=== PATIENT | female | born 1945 | race Caucasian/White ===

== ENCOUNTER 2017-10-20 15:18 | Inpatient (IN) | payer MEDICARE, BC ==
[~2017-10-20] VITALS: Ht 160 cm; Wt 73.0 kg
[2017-10-20 15:18] VITALS: BP 126/73
[2017-10-20] MEDS ORDERED: Sodium Chloride 500ML 500 ML IV ONE (15:28)
[2017-10-20] MEDS ORDERED: Ipratropium 0.02% Inh Soln 2.5ml UD HHN ONE (15:30)
[2017-10-20] MEDS ORDERED: Albuterol ud Inhalation HHN ONE (15:30)
[2017-10-20] MEDS ORDERED: Piperacillin/Tazobactam 4.5 GM in NS 110 ML IV SCH (15:30)
[2017-10-20 16:13] LABS: MEAN CORPUSCULAR HEMOGLOBIN 28.8 PG (27.0-31.0); MEAN CORPUSCULAR HGB CONC 33.3 G/DL (32.0-36.0); MEAN CORPUSCULAR VOLUME 86 FL (80-99); MEAN PLATELET VOLUME 7.6 FL (6.5-10.1); PLATELET COUNT 456 K/UL (150-450); RED BLOOD COUNT 4.65 M/UL (4.20-5.40); RED CELL DISTRIBUTION WIDTH 11.8 % (11.6-14.8)
[2017-10-20] MEDS ORDERED: Zosyn 4.5gm inj ONE (16:16)
[2017-10-20 16:25] LABS: ANION GAP 11 mmol/L (5-15); CALCIUM 8.9 MG/DL (8.5-10.1); CARBON DIOXIDE 30 MMOL/L (21-32); CHLORIDE 91 MMOL/L (98-107); CREATININE 1.4 MG/DL (0.55-1.30); GLOMERULAR FILTRATION RATE 37.2 mL/min (>60); INR 1.1 (0.9-1.1); POTASSIUM 3.4 MMOL/L (3.5-5.1); PROTHROMBIN TIME 11.9 SEC (9.30-11.50); SODIUM 132 MMOL/L (136-145)
[2017-10-20] MEDS ORDERED: LORazepam Inj 2mg/ml 1ml IV ONE (16:30)
[2017-10-20 16:39] LABS: ALANINE AMINOTRANSFERASE 13 U/L (12-78); ALBUMIN/GLOBULIN RATIO 0.6 (1.0-2.7); ASPARTATE AMINO TRANSFERASE 12 U/L (15-37); TOTAL PROTEIN 7.4 G/DL (6.4-8.2)
[2017-10-20] MEDS ORDERED: LORazepam 0.5mg tab ORAL ONE (17:00)
--- NOTE | 2017-10-20 17:01 | Diagnostic Imaging Report ---
Indication: SOB Technique: One view of the chest Comparison: none Findings: There is a large left pleural effusion. Underlying parenchymal disease not excludable. Right lung and pleural space are clear. Impression: Large left pleural effusion Findings previously discussed by phone with Dr. Neri in the emergency room
[2017-10-20 17:25] LABS: BAND NEUTROPHILS % (MANUAL) 1 % (0-8); LYMPHOCYTES % (MANUAL) 1 % (20-45); NEUTROPHILS % (MANUAL) 95 % (45-75); TOTAL CELLS COUNTED 100
[2017-10-20 17:26] LABS: BASOPHILS % (MANUAL) 0 % (0-2); EOSINOPHILS % (MANUAL) 0 % (0-3); PLATELET ESTIMATE INCREASED; PLATELET MORPHOLOGY NORMAL
[2017-10-20 17:42] LABS: APPEARANCE,URINE CLEAR; KETONES,URINE 1+ (NEGATIVE); LEUKOCYTE ESTERASE ,URINE NEGATIVE (NEGATIVE); NITRITE,URINE NEGATIVE (NEGATIVE); PH,URINE 5 (4.5-8.0); PROTEIN,URINE 2+ (NEGATIVE); UROBILINOGEN,URINE NORMAL MG/DL (0.0-1.0)
[2017-10-20 17:56] LABS: SQUAMOUS EPITHELIAL CELL,UR FEW /LPF (NONE/OCC)
[2017-10-20 17:57] LABS: BACTERIA,URINE FEW /HPF
[2017-10-20 18:08] LABS: ABG ALLEN TEST POSITIVE; ABG BASE EXCESS 2.9; ABG PCO2 33.8 mmHg (35.0-45.0)
[2017-10-20 18:12] VITALS: BP 117/59
[2017-10-20 18:40] VITALS: BP 124/47
[2017-10-20] MEDS ORDERED: Miralax 17gm pkt ORAL PRN (18:45)
[2017-10-20] MEDS ORDERED: LORazepam Inj 2mg/ml 1ml IV PRN (18:45)
[2017-10-20] MEDS ORDERED: Morphine Sulfate 4mg/ml Inj IVP PRN (18:45)
--- NOTE | 2017-10-20 18:51 | Consultation ---
History of Present Illness General Date patient seen: Oct 20, 2017 Chief Complaint: Dyspnea/Respdistress Referring physician: Dr. Mckeon Reason for Consultation: pleural effusion Present Illness HPI 72-year-old female with PMHx of HTN sent in by primary care physician for increased difficulty breathing. She is coughing yellow phlegm and has inspiratory left sided chest pain. She had recent chest x-ray which showed a left-sided infiltrate versus effusion. She had elevated white blood count. she had a Ct chest in ER showing large loculated Left effusion. She is admitted for further evaluation. Allergies: Coded Allergies: No Known Allergies (Unverified , 10/20/17) Patient History Healthcare decision maker Resuscitation status Advanced Directive on File Past Medical/Surgical History Past Medical/Surgical History: (1) History of hypertension Review of Systems Constitutional: Reports: weakness Eye: Reports: no symptoms Respiratory: Reports: shortness of breath Cardiovascular: Reports: no symptoms Gastrointestinal: Reports: no symptoms Genitourinary: Reports: no symptoms Musculoskeletal: Reports: no symptoms Physical Exam General Appearance: WD/WN Lines, tubes and drains: peripheral HEENT: normocephalic, atraumatic Neck: non-tender, normal alignment, supple Respiratory/Chest: chest wall non-tender, lungs clear Cardiovascular/Chest: normal peripheral pulses, normal rate Abdomen: normal bowel sounds, non tender Genitourinary/Rectal: normal genital exam, normal rectal exam Extremities: normal range of motion, non-tender Skin Exam: normal pigmentation Last 24 Hour Vital Signs Date Time Temp Pulse Resp B/P (MAP) Pulse Ox O2 Delivery O2 Flow Rate FiO2 10/20/17 18:40 97.2 78 124/47 97 Nasal Cannula 3.0 10/20/17 18:12 81 27 117/59 97 Nasal Cannula 3.0 10/20/17 16:10 88 24 99 Nasal Cannula 2.0 28 10/20/17 15:47 79 24 98 Nasal Cannula 2.0 28 10/20/17 15:46 80 23 Nasal Cannula 2.0 28 10/20/17 15:18 98.4 80 30 126/73 97 Nasal Cannula 2.0 10/20/17 15:18 80 33 Nasal Cannula 2.0 10/20/17 15:13 80 20 122/70 96 Nasal Cannula 2.0 Intake and Output 10/20/17 10/21/17 19:00 07:00 Intake Total 110 ml Balance 110 ml Intake IV Total 110 ml # Voids 2 Laboratory Tests Test 10/20/17 15:50 10/20/17 16:50 10/20/17 17:15 White Blood Count 32.0 K/UL (4.8-10.8) *H Red Blood Count 4.65 M/UL (4.20-5.40) Hemoglobin 13.4 G/DL (12.0-16.0) Hematocrit 40.2 % (37.0-47.0) Mean Corpuscular Volume 86 FL (80-99) Mean Corpuscular Hemoglobin 28.8 PG (27.0-31.0) Mean Corpuscular Hemoglobin Concent 33.3 G/DL (32.0-36.0) Red Cell Distribution Width 11.8 % (11.6-14.8) Platelet Count 456 K/UL (150-450) H Mean Platelet Volume 7.6 FL (6.5-10.1) Neutrophils (%) (Auto) % (45.0-75.0) Lymphocytes (%) (Auto) % (20.0-45.0) Monocytes (%) (Auto) % (1.0-10.0) Eosinophils (%) (Auto) % (0.0-3.0) Basophils (%) (Auto) % (0.0-2.0) Differential Total Cells Counted 100 Neutrophils % (Manual) 95 % (45-75) H Lymphocytes % (Manual) 1 % (20-45) L Monocytes % (Manual) 3 % (1-10) Eosinophils % (Manual) 0 % (0-3) Basophils % (Manual) 0 % (0-2) Band Neutrophils 1 % (0-8) Platelet Estimate Increased H Platelet Morphology Normal Red Blood Cell Morphology Normal Prothrombin Time 11.9 SEC (9.30-11.50) H Prothromb Time International Ratio 1.1 (0.9-1.1) Activated Partial Thromboplast Time 37 SEC (23-33) H Sodium Level 132 MMOL/L (136-145) L Potassium Level 3.4 MMOL/L (3.5-5.1) L Chloride Level 91 MMOL/L (98-107) L Carbon Dioxide Level 30 MMOL/L (21-32) Anion Gap 11 mmol/L (5-15) Blood Urea Nitrogen 30 mg/dL (7-18) H Creatinine 1.4 MG/DL (0.55-1.30) H Estimat Glomerular Filtration Rate 37.2 mL/min (>60) Glucose Level 103 MG/DL (74-106) Calcium Level 8.9 MG/DL (8.5-10.1) Total Bilirubin 0.5 MG/DL (0.2-1.0) Aspartate Amino Transf (AST/SGOT) 12 U/L (15-37) L Alanine Aminotransferase (ALT/SGPT) 13 U/L (12-78) Alkaline Phosphatase 93 U/L (46-116) Troponin I 0.000 ng/mL (0.000-0.056) Pro-B-Type Natriuretic Peptide 253 pg/mL (0-125) H Total Protein 7.4 G/DL (6.4-8.2) Albumin 2.8 G/DL (3.4-5.0) L Globulin 4.6 g/dL Albumin/Globulin Ratio 0.6 (1.0-2.7) L Arterial Blood pH 7.498 (7.350-7.450) Arterial Blood Partial Pressure CO2 33.8 mmHg (35.0-45.0) L Arterial Blood Partial Pressure O2 99.1 mmHg (75.0-100.0) Arterial Blood HCO3 25.6 mmol/L (22.0-26.0) Arterial Blood Oxygen Saturation 97.4 % (92.0-98.0) Arterial Blood Base Excess 2.9 Yimi Test Positive Urine Color Yellow Urine Appearance Clear Urine pH 5 (4.5-8.0) Urine Specific [place] 1.015 (1.005-1.035) Urine Protein 2+ (NEGATIVE) H Urine Glucose (UA) Negative (NEGATIVE) Urine Ketones 1+ (NEGATIVE) H Urine Occult Blood 5+ (NEGATIVE) H Urine Nitrite Negative (NEGATIVE) Urine Bilirubin Negative (NEGATIVE) Urine Urobilinogen Normal MG/DL (0.0-1.0) Urine Leukocyte Esterase Negative (NEGATIVE) Urine RBC 5-10 /HPF (0 - 2) H Urine WBC 2-4 /HPF (0 - 2) Urine Squamous Epithelial Cells Few /LPF (NONE/OCC) Urine Bacteria Few /HPF (NONE) Microbiology Date/Time Source Procedure Growth Status 10/20/17 17:15 Nasal Nares Influenza Types A,B Antigen (BRONWYN) - Final Complete Height (Feet): 5 Height (Inches): 3.00 Weight (Pounds): 110 Medications Current Medications Medications (Trade) Dose Ordered Sig/[place] Route PRN Reason Start Time Stop Time Status Last Admin Dose Admin Acetaminophen (Tylenol) 650 mg Q4H PRN ORAL FEVER 10/20/17 18:45 11/19/17 18:44 UNV Albuterol/ Ipratropium (Albuterol/ Ipratropium) 3 ml EVERY 4 HOURS PRN HHN Shortness of Breath 10/20/17 18:45 10/25/17 18:44 UNV Cefepime HCl 2 gm/ Dextrose 110 ml @ 220 mls/hr EVERY 12 HOURS IV 10/20/17 21:00 10/27/17 20:59 UNV Dextrose (Dextrose 50%) STAT PRN IV Hypoglycemia 10/20/17 18:45 11/19/17 18:44 UNV Heparin Sodium (Porcine) (Heparin 5000 units/ml) 5,000 units EVERY 12 HOURS SUBQ 10/20/17 21:00 11/19/17 20:59 UNV Lorazepam (Ativan 2mg/ml 1ml) 2 mg EVERY 2 HOURS PRN IV For Anxiety 10/20/17 18:45 10/27/17 18:44 UNV Morphine Sulfate (Morphine Sulfate) 4 mg EVERY 4 HOURS PRN IVP Severe Pain (Pain Scale 7-10) 10/20/17 18:45 10/27/17 18:44 UNV Ondansetron HCl (Zofran) 4 mg Q6H PRN IVP Nausea & Vomiting 10/20/17 18:45 11/19/17 18:44 UNV Piperacillin Sod/ Tazobactam Sod 4.5 gm/Sodium Chloride 110 ml @ 220 mls/hr Q6H IV 10/20/17 15:30 10/21/17 15:29 10/20/17 16:33 Polyethylene Glycol (Miralax) 17 gm DAILYPRN PRN ORAL Constipation 10/20/17 18:45 11/19/17 18:44 UNV Sodium Chloride 1,000 ml @ 50 mls/hr Q20H IV 10/20/17 18:38 11/19/17 18:37 UNV Vancomycin HCl 1 gm/Dextrose 275 ml @ 183.3 mls/ hr Q24H IV 10/20/17 23:00 10/25/17 22:59 UNV Assessment/Plan Problem List: (1) Sepsis ICD Codes: A41.9 - Sepsis, unspecified organism SNOMED: 32786340 (2) Pleural effusion ICD Codes: J90 - Pleural effusion, not elsewhere classified SNOMED: 56787053 Assessment/Plan iv abx thoracentesis check cultures f/u wbc check sputum SEMAJ WILKINS Oct 20, 2017 18:51
[2017-10-20] MEDS: Albuterol/Ipratropium 3ml neb HHN PRN (19:40)
[2017-10-20 19:45] LABS: URIC ACID 6.6 MG/DL (2.6-7.2)
[2017-10-20 19:47] LABS: INR 1.1 (0.9-1.1)
[2017-10-20 20:00] VITALS: BP 103/65
[2017-10-20] MEDS ORDERED: Cefepime 2gm in D5W 55ml IVPB ONE (20:30)
[2017-10-20] MEDS ORDERED: Cefepime HCl 2 GM in D5W 110 ML IV SCH (21:00)
[2017-10-20] MEDS: Heparin 5000 units/ml inj SUBQ SCH (21:04)
[2017-10-20] MEDS: Vancomycin 750mg/NS 250ml IVPB SCH (21:48)
[2017-10-20] MEDS ORDERED: Vancomycin 1 GM in D5W 275 ML IV SCH (23:00)
--- NOTE | 2017-10-20 23:42 | History & Physical ---
History and Physical History & Physicial H & P Dictated Job # Jesse Mckeon MD Oct 20, 2017 23:42
[2017-10-21] VITALS: BP 110/58
--- NOTE | 2017-10-21 01:16 | Emergency Room Report ---
History of Present Illness General Chief Complaint: Dyspnea/Respdistress Source: Patient Present Illness HPI Patient is a 72-year-old female sent in by primary care physician after increased difficulty breathing. The patient was noted to have prior history of some difficulty breathing which began after a recent GI procedure. She gradual onset of symptoms. This had progressively worsen. She had recent chest x-ray which showed a left-sided infiltrate versus effusion. The patient noted how elevated white blood count was sent to the hospital for further evaluation. She was noted to have difficulty breathing. The patient was not noted to have any leg pain or swelling. She denies having chest pain. Allergies: Coded Allergies: No Known Allergies (Unverified , 10/20/17) Patient History Past Medical History: see triage record Now: No Reviewed Nursing Documentation: PMH: Agreed Nursing Documentation-PMH Past Medical History: No History, Except For Hx Cardiac Problems: Yes Hx Hypertension: Yes Hx Cancer: No Hx Gastrointestinal Problems: No Hx Neurological Problems: No Review of Systems All Other Systems: negative except mentioned in HPI Physical Exam Vital Signs Date Time Temp Pulse Resp B/P (MAP) Pulse Ox O2 Delivery O2 Flow Rate FiO2 10/20/17 15:13 80 20 122/70 96 Nasal Cannula 2.0 10/20/17 15:18 98.4 10/20/17 15:46 28 Sp02 EP Interpretation: reviewed, normal General Appearance: normal inspection, alert, moderate distress Head: atraumatic ENT: normal ENT inspection, hearing grossly normal, normal voice Neck: normal inspection, full range of motion, supple, no bony tend Respiratory: normal inspection, no retraction, decreased breath sounds, wheezing Cardiovascular #1: regular rate, rhythm, no edema Gastrointestinal: normal inspection, normal bowel sounds, non tender, soft, no guarding, no hernia Genitourinary: no CVA tenderness Musculoskeletal: normal inspection, back normal, normal range of motion Neurologic: normal inspection, alert, oriented x3, responsive, chief recordist III-XII nml as tested, speech normal Psychiatric: normal inspection, judgement/insight normal, mood/affect normal Skin: normal inspection, normal color, no rash Medical Decision Making Diagnostic Impression: Primary Impression: Dyspnea Additional Impression: Respiratory distress ER Course This presented for shortness of breath. Differential included but was not limited to anemia, pneumonia, pneumothorax, myocardial infarction, pericardial effusion, congestive heart failure, acidosis. Because of complexity of patient' s case laboratory testing and imaging studies were ordered. X-ray imaging the chest one view interpreted by radiology showed left-sided pleural effusion. patient was given breathing treatments with some improvement in wheezing. The patient was noted to have evidence of sepsis with elevated white blood count. Patient started on IV antibiotics as well as IV fluid. I CT the chest was ordered CT read by radiology showed no evidence of pulmonary embolism. The patient noted have a somewhat loculated pleural effusion. Dr. Jesse Mckeon was contacted for inpatient management due to being panel physician Labs Test 10/20/17 15:50 10/20/17 16:50 10/20/17 17:15 10/20/17 19:08 White Blood Count 32.0 K/UL (4.8-10.8) Red Blood Count 4.65 M/UL (4.20-5.40) Hemoglobin 13.4 G/DL (12.0-16.0) Hematocrit 40.2 % (37.0-47.0) Mean Corpuscular Volume 86 FL (80-99) Mean Corpuscular Hemoglobin 28.8 PG (27.0-31.0) Mean Corpuscular Hemoglobin Concent 33.3 G/DL (32.0-36.0) Red Cell Distribution Width 11.8 % (11.6-14.8) Platelet Count 456 K/UL (150-450) Mean Platelet Volume 7.6 FL (6.5-10.1) Neutrophils (%) (Auto) % (45.0-75.0) Lymphocytes (%) (Auto) % (20.0-45.0) Monocytes (%) (Auto) % (1.0-10.0) Eosinophils (%) (Auto) % (0.0-3.0) Basophils (%) (Auto) % (0.0-2.0) Differential Total Cells Counted 100 Neutrophils % (Manual) 95 % (45-75) Lymphocytes % (Manual) 1 % (20-45) Monocytes % (Manual) 3 % (1-10) Eosinophils % (Manual) 0 % (0-3) Basophils % (Manual) 0 % (0-2) Band Neutrophils 1 % (0-8) Platelet Estimate Increased Platelet Morphology Normal Red Blood Cell Morphology Normal Sodium Level 132 MMOL/L (136-145) Potassium Level 3.4 MMOL/L (3.5-5.1) Chloride Level 91 MMOL/L (98-107) Carbon Dioxide Level 30 MMOL/L (21-32) Anion Gap 11 mmol/L (5-15) Blood Urea Nitrogen 30 mg/dL (7-18) Creatinine 1.4 MG/DL (0.55-1.30) Estimat Glomerular Filtration Rate 37.2 mL/min (>60) Glucose Level 103 MG/DL (74-106) Calcium Level 8.9 MG/DL (8.5-10.1) Total Bilirubin 0.5 MG/DL (0.2-1.0) Aspartate Amino Transf (AST/SGOT) 12 U/L (15-37) Alanine Aminotransferase (ALT/SGPT) 13 U/L (12-78) Alkaline Phosphatase 93 U/L (46-116) Troponin I 0.000 ng/mL (0.000-0.056) Pro-B-Type Natriuretic Peptide 253 pg/mL (0-125) Total Protein 7.4 G/DL (6.4-8.2) Albumin 2.8 G/DL (3.4-5.0) Globulin 4.6 g/dL Albumin/Globulin Ratio 0.6 (1.0-2.7) Arterial Blood pH 7.498 (7.350-7.450) Arterial Blood Partial Pressure CO2 33.8 mmHg (35.0-45.0) Arterial Blood Partial Pressure O2 99.1 mmHg (75.0-100.0) Arterial Blood HCO3 25.6 mmol/L (22.0-26.0) Arterial Blood Oxygen Saturation 97.4 % (92.0-98.0) Arterial Blood Base Excess 2.9 Yimi Test Positive Urine Color Yellow Urine Appearance Clear Urine pH 5 (4.5-8.0) Urine Specific [place] 1.015 (1.005-1.035) Urine Protein 2+ (NEGATIVE) Urine Glucose (UA) Negative (NEGATIVE) Urine Ketones 1+ (NEGATIVE) Urine Occult Blood 5+ (NEGATIVE) Urine Nitrite Negative (NEGATIVE) Urine Bilirubin Negative (NEGATIVE) Urine Urobilinogen Normal MG/DL (0.0-1.0) Urine Leukocyte Esterase Negative (NEGATIVE) Urine RBC 5-10 /HPF (0 - 2) Urine WBC 2-4 /HPF (0 - 2) Urine Squamous Epithelial Cells Few /LPF (NONE/OCC) Urine Bacteria Few /HPF (NONE) Prothrombin Time 12.0 SEC (9.30-11.50) Prothromb Time International Ratio 1.1 (0.9-1.1) Activated Partial Thromboplast Time 38 SEC (23-33) Uric Acid 6.6 MG/DL (2.6-7.2) Total Creatine Kinase 53 U/L (26-308) Test 10/20/17 21:00 Urine Eosinophils None seen Urine Random Sodium 40 MEQ/L (20-110) Urine Potassium Timed 9 mmol/L (12-62) Last Vital Signs Date Time Temp Pulse Resp B/P (MAP) Pulse Ox O2 Delivery O2 Flow Rate FiO2 10/21/17 00:00 84 10/20/17 20:37 18 Nasal Cannula 3.0 32 10/20/17 20:36 96 10/20/17 20:00 97.9 103/65 Status: unchanged Disposition: ADMITTED INPATIENT Condition: Serious Referrals: NON PHYSICIAN (PCP) Adan Neri Oct 21, 2017 01:16
[2017-10-21] MEDS: Albuterol/Ipratropium 3ml neb HHN PRN ×2 (02:35→07:13)
[2017-10-21 04:00] VITALS: BP 124/70
[2017-10-21 05:13] LABS: MEAN CORPUSCULAR HEMOGLOBIN 29.6 PG (27.0-31.0); MEAN CORPUSCULAR HGB CONC 34.4 G/DL (32.0-36.0); MEAN CORPUSCULAR VOLUME 86 FL (80-99); PLATELET COUNT 461 K/UL (150-450)
[2017-10-21 05:40] LABS: ANION GAP 8 mmol/L (5-15); CALCIUM 8.9 MG/DL (8.5-10.1); CARBON DIOXIDE 29 MMOL/L (21-32); CHLORIDE 96 MMOL/L (98-107); CREATININE 1.1 MG/DL (0.55-1.30); GLOMERULAR FILTRATION RATE 49.1 mL/min (>60); PHOSPHORUS 3.6 MG/DL (2.5-4.9); POTASSIUM 3.2 MMOL/L (3.5-5.1); SODIUM 133 MMOL/L (136-145)
[2017-10-21 07:17] LABS: BAND NEUTROPHILS % (MANUAL) 1 % (0-8); BASOPHILS % (MANUAL) 1 % (0-2); EOSINOPHILS % (MANUAL) 0 % (0-3); LYMPHOCYTES % (MANUAL) 3 % (20-45); NEUTROPHILS % (MANUAL) 89 % (45-75); PLATELET ESTIMATE ADEQUATE; PLATELET MORPHOLOGY NORMAL; TOTAL CELLS COUNTED 100
[2017-10-21 08:00] VITALS: BP 115/71
--- NOTE | 2017-10-21 08:15 | Diagnostic Imaging Report ---
Indication: Shortness of breath Technique: CT pulmonary angiogram performed utilizing automated exposure control with intravenous contrast. Axial, sagittal and coronal reconstructions were obtained. 3-D volumetric reconstructions were also performed. CT dose: Total DLP 730 mGycm; CTDI vol 0.2, 12.6, 50.5, 25.9 mGy Comparison: Correlation made to concurrent chest radial. No prior CT of the chest available for comparison. Findings: Motion degraded exam. Adequate opacification of the pulmonary arteries was achieved. There is no central or large segmental pulmonary embolism. Patient motion and left-sided lung consolidation renders the exam nondiagnostic for smaller subsegmental pulmonary emboli. No evidence of thoracic aortic aneurysm or dissection. There is conventional branching anatomy of the great vessels. There is a large partially loculated left pleural effusion with near complete compressive atelectasis of the left lower lobe. The pleural effusion noted to extend along the medial pleura with mass effect and shift of the mediastinal structures to the right. Rounded fluid attenuation structures with somewhat more defined rims are noted in the left lower lung that may represent loculated fluid however mass is not excluded. Short-term interval followup after thoracentesis is recommended. There is dependent atelectasis on the right. No right-sided pleural effusion. No pneumothorax. Heart size is within normal limits. There is no pericardial effusion. Heterogeneous enlarged left lobe of the thyroid with calcified and noncalcified nodules. Images of the upper abdomen demonstrate a small hiatal hernia. No acute osseous abnormality is seen. Impression: No evidence of central or large segmental pulmonary embolus. Patient motion and pleural/parenchymal disease on the left makes the examination nondiagnostic for smaller subsegmental pulmonary emboli. No evidence of thoracic aortic aneurysm or dissection. Large loculated left pleural effusion with near complete compressive atelectasis of the left lower lobe. There is some shift of the mediastinal structures to the right. Some rounded low attenuation areas in the left lung may be related to focal loculations of pleural fluid however mass is not entirely excluded. Short-term followup exam after thoracentesis recommended for better evaluation. Heterogeneous multinodular left thyroid lobe/goiter with calcified and noncalcified nodules. This corresponds with the preliminary report. The CT scanner at [facility] is accredited by the [employer] and the scans are performed using protocols designed to limit radiation exposure to as low as reasonably achievable to attain images of sufficient resolution adequate for diagnostic evaluation.
[2017-10-21] MEDS: Heparin 5000 units/ml inj SUBQ SCH ×2 (09:00→20:58)
--- NOTE | 2017-10-21 11:26 | Cardiology Report ---
APPROVED REPORT EKG Measurement Heart [id number] Normal sinus rhythm Incomplete right bundle branch block Left anterior fascicular block Abnormal ECG
[2017-10-21 12:00] VITALS: BP 121/72
[2017-10-21] MEDS: D5NS w/KCl 40mEq 1000ml 1,000 ML IV SCH ×2 (12:29→23:02)
[2017-10-21] MEDS: guaiFENesin ER 600mg tab ORAL SCH ×2 (12:29→17:58)
--- NOTE | 2017-10-21 12:58 | Consultation ---
History of Present Illness General Date patient seen: Oct 21, 2017 Time patient seen: 14:05 Chief Complaint: Dyspnea/Respdistress Referring physician: Dr. Mckeon Reason for Consultation: pleural effusion Present Illness HPI 72 y/o F with hx of HTN is sent by PCP to ED on 10/20 with 2-3 days of worsening SOB after recent GI procedure (EGD/[place] ~ 1 week ago). +productive cough and left side inspiratory CP and poor appetitie. CXR showed left side infiltrate vs effusion. Found to have leukocytosis and CT chest which showed large loculated L pleural effusion s/p thoracentesis today with 160 cc of thin pleural fluid. The US revealed multiple loculations. Denies f/c, CP, leg swelling afebrile, leukocytosis up to 32, now improving Allergies: Coded Allergies: No Known Allergies (Unverified , 10/20/17) Patient History Healthcare decision maker N/A Resuscitation status Full Code Advanced Directive on File No Patient History Narrative Pmhx: as above Shx reviewed Fhx non contributory Review of Systems All Other Systems: negative except mentioned in HPI Physical Exam Physical Exam Narrative General Appearance: WD/WN Lines, tubes and drains: peripheral HEENT: normocephalic, atraumatic Neck: non-tender, normal alignment, supple Respiratory/Chest: chest wall non-tender, decreased breath sounds L lung Cardiovascular/Chest: normal peripheral pulses, normal rate Abdomen: normal bowel sounds, non tender Genitourinary/Rectal: normal genital exam, normal rectal exam Extremities: normal range of motion, non-tender Skin Exam: normal pigmentation Last 24 Hour Vital Signs Date Time Temp Pulse Resp B/P (MAP) Pulse Ox O2 Delivery O2 Flow Rate FiO2 10/21/17 08:00 94 10/21/17 07:18 89 16 99 Nasal Cannula 3.0 32 10/21/17 07:16 Nasal Cannula 3.0 32 10/21/17 07:16 89 16 99 Nasal Cannula 3.0 32 10/21/17 07:13 99 Nasal Cannula 3.0 32 10/21/17 07:13 88 16 Nasal Cannula 3.0 32 10/21/17 04:00 98.7 87 28 124/70 94 Nasal Cannula 3.0 10/21/17 04:00 86 10/21/17 02:43 92 20 95 Nasal Cannula 3.0 32 10/21/17 02:42 32 10/21/17 02:40 85 20 93 Nasal Cannula 3.0 32 10/21/17 02:39 93 Nasal Cannula 3.0 32 10/21/17 02:36 85 20 Nasal Cannula 3.0 32 10/21/17 00:00 84 10/21/17 00:00 98.0 65 24 110/58 95 Nasal Cannula 3.0 10/21/17 00:00 98.0 65 24 110/58 95 Nasal Cannula 3.0 10/20/17 20:37 83 18 Nasal Cannula 3.0 32 10/20/17 20:36 96 Nasal Cannula 3.0 32 10/20/17 20:35 Nasal Cannula 3.0 32 10/20/17 20:00 81 10/20/17 20:00 97.9 82 24 103/65 97 Nasal Cannula 3.0 10/20/17 19:05 83 18 96 Nasal Cannula 3.0 32 10/20/17 18:55 32 10/20/17 18:53 78 22 96 Nasal Cannula 3.0 32 10/20/17 18:40 97.2 78 31 124/47 97 Nasal Cannula 3.0 10/20/17 18:30 98.4 81 27 117/59 97 Nasal Cannula 3.0 28 10/20/17 18:12 81 27 117/59 97 Nasal Cannula 3.0 10/20/17 16:10 88 24 99 Nasal Cannula 2.0 28 10/20/17 15:47 79 24 98 Nasal Cannula 2.0 28 10/20/17 15:46 80 23 Nasal Cannula 2.0 28 10/20/17 15:18 98.4 80 30 126/73 97 Nasal Cannula 2.0 10/20/17 15:18 80 33 Nasal Cannula 2.0 10/20/17 15:13 80 20 122/70 96 Nasal Cannula 2.0 Laboratory Tests Test 10/20/17 15:50 10/20/17 16:50 10/20/17 17:15 10/20/17 19:08 White Blood Count 32.0 K/UL (4.8-10.8) *H Red Blood Count 4.65 M/UL (4.20-5.40) Hemoglobin 13.4 G/DL (12.0-16.0) Hematocrit 40.2 % (37.0-47.0) Mean Corpuscular Volume 86 FL (80-99) Mean Corpuscular Hemoglobin 28.8 PG (27.0-31.0) Mean Corpuscular Hemoglobin Concent 33.3 G/DL (32.0-36.0) Red Cell Distribution Width 11.8 % (11.6-14.8) Platelet Count 456 K/UL (150-450) H Mean Platelet Volume 7.6 FL (6.5-10.1) Neutrophils (%) (Auto) % (45.0-75.0) Lymphocytes (%) (Auto) % (20.0-45.0) Monocytes (%) (Auto) % (1.0-10.0) Eosinophils (%) (Auto) % (0.0-3.0) Basophils (%) (Auto) % (0.0-2.0) Differential Total Cells Counted 100 Neutrophils % (Manual) 95 % (45-75) H Lymphocytes % (Manual) 1 % (20-45) L Monocytes % (Manual) 3 % (1-10) Eosinophils % (Manual) 0 % (0-3) Basophils % (Manual) 0 % (0-2) Band Neutrophils 1 % (0-8) Platelet Estimate Increased H Platelet Morphology Normal Red Blood Cell Morphology Normal Prothrombin Time 11.9 SEC (9.30-11.50) H 12.0 SEC (9.30-11.50) H Prothromb Time International Ratio 1.1 (0.9-1.1) 1.1 (0.9-1.1) Activated Partial Thromboplast Time 37 SEC (23-33) H 38 SEC (23-33) H Sodium Level 132 MMOL/L (136-145) L Potassium Level 3.4 MMOL/L (3.5-5.1) L Chloride Level 91 MMOL/L (98-107) L Carbon Dioxide Level 30 MMOL/L (21-32) Anion Gap 11 mmol/L (5-15) Blood Urea Nitrogen 30 mg/dL (7-18) H Creatinine 1.4 MG/DL (0.55-1.30) H Estimat Glomerular Filtration Rate 37.2 mL/min (>60) Glucose Level 103 MG/DL (74-106) Calcium Level 8.9 MG/DL (8.5-10.1) Total Bilirubin 0.5 MG/DL (0.2-1.0) Aspartate Amino Transf (AST/SGOT) 12 U/L (15-37) L Alanine Aminotransferase (ALT/SGPT) 13 U/L (12-78) Alkaline Phosphatase 93 U/L (46-116) Troponin I 0.000 ng/mL (0.000-0.056) Pro-B-Type Natriuretic Peptide 253 pg/mL (0-125) H Total Protein 7.4 G/DL (6.4-8.2) Albumin 2.8 G/DL (3.4-5.0) L Globulin 4.6 g/dL Albumin/Globulin Ratio 0.6 (1.0-2.7) L Arterial Blood pH 7.498 (7.350-7.450) Arterial Blood Partial Pressure CO2 33.8 mmHg (35.0-45.0) L Arterial Blood Partial Pressure O2 99.1 mmHg (75.0-100.0) Arterial Blood HCO3 25.6 mmol/L (22.0-26.0) Arterial Blood Oxygen Saturation 97.4 % (92.0-98.0) Arterial Blood Base Excess 2.9 Yimi Test Positive Urine Color Yellow Urine Appearance Clear Urine pH 5 (4.5-8.0) Urine Specific [place] 1.015 (1.005-1.035) Urine Protein 2+ (NEGATIVE) H Urine Glucose (UA) Negative (NEGATIVE) Urine Ketones 1+ (NEGATIVE) H Urine Occult Blood 5+ (NEGATIVE) H Urine Nitrite Negative (NEGATIVE) Urine Bilirubin Negative (NEGATIVE) Urine Urobilinogen Normal MG/DL (0.0-1.0) Urine Leukocyte Esterase Negative (NEGATIVE) Urine RBC 5-10 /HPF (0 - 2) H Urine WBC 2-4 /HPF (0 - 2) Urine Squamous Epithelial Cells Few /LPF (NONE/OCC) Urine Bacteria Few /HPF (NONE) Uric Acid 6.6 MG/DL (2.6-7.2) Total Creatine Kinase 53 U/L (26-308) Test 10/20/17 21:00 10/21/17 03:50 Urine Eosinophils None seen Urine Random Sodium 40 MEQ/L (20-110) Urine Potassium Timed 9 mmol/L (12-62) L White Blood Count 28.0 K/UL (4.8-10.8) *H Red Blood Count 4.30 M/UL (4.20-5.40) Hemoglobin 12.7 G/DL (12.0-16.0) Hematocrit 37.1 % (37.0-47.0) Mean Corpuscular Volume 86 FL (80-99) Mean Corpuscular Hemoglobin 29.6 PG (27.0-31.0) Mean Corpuscular Hemoglobin Concent 34.4 G/DL (32.0-36.0) Red Cell Distribution Width 12.0 % (11.6-14.8) Platelet Count 461 K/UL (150-450) H Mean Platelet Volume 8.0 FL (6.5-10.1) Neutrophils (%) (Auto) % (45.0-75.0) Lymphocytes (%) (Auto) % (20.0-45.0) Monocytes (%) (Auto) % (1.0-10.0) Eosinophils (%) (Auto) % (0.0-3.0) Basophils (%) (Auto) % (0.0-2.0) Differential Total Cells Counted 100 Neutrophils % (Manual) 89 % (45-75) H Lymphocytes % (Manual) 3 % (20-45) L Monocytes % (Manual) 6 % (1-10) Eosinophils % (Manual) 0 % (0-3) Basophils % (Manual) 1 % (0-2) Band Neutrophils 1 % (0-8) Platelet Estimate Adequate Platelet Morphology Normal Red Blood Cell Morphology Normal Sodium Level 133 MMOL/L (136-145) L Potassium Level 3.2 MMOL/L (3.5-5.1) L Chloride Level 96 MMOL/L (98-107) L Carbon Dioxide Level 29 MMOL/L (21-32) Anion Gap 8 mmol/L (5-15) Blood Urea Nitrogen 22 mg/dL (7-18) H Creatinine 1.1 MG/DL (0.55-1.30) Estimat Glomerular Filtration Rate 49.1 mL/min (>60) Glucose Level 95 MG/DL (74-106) Calcium Level 8.9 MG/DL (8.5-10.1) Phosphorus Level 3.6 MG/DL (2.5-4.9) Albumin 2.4 G/DL (3.4-5.0) L Microbiology Date/Time Source Procedure Growth Status 10/20/17 21:00 Sputum Gram Stain - Final Resulted 10/20/17 21:00 Sputum Sputum Culture Pending Resulted 10/20/17 17:15 Nasal Nares Influenza Types A,B Antigen (BRONWYN) - Final Complete Height (Feet): 5 Height (Inches): 3.00 Weight (Pounds): 161 Medications Current Medications Medications (Trade) Dose Ordered Sig/[place] Route PRN Reason Start Time Stop Time Status Last Admin Dose Admin Acetaminophen (Tylenol) 650 mg Q4H PRN ORAL FEVER 10/20/17 18:45 11/19/17 18:44 Albuterol/ Ipratropium (Albuterol/ Ipratropium) 3 ml Q4H PRN HHN Shortness of Breath 10/20/17 18:45 10/25/17 18:44 10/21/17 07:13 Cefepime HCl 1 gm/ Dextrose 55 ml @ 110 mls/hr Q24H IVPB 10/21/17 20:30 10/28/17 20:29 Dextrose (Dextrose 50%) STAT PRN IV Hypoglycemia 10/20/17 18:45 11/19/17 18:44 Dextrose/ Electrolytes 1,000 ml @ 100 mls/hr Q10H IV 10/21/17 12:00 11/20/17 11:59 10/21/17 12:29 Guaifenesin (Mucinex ER) 600 mg TWICE A DAY ORAL 10/21/17 12:00 11/20/17 11:59 10/21/17 12:29 Heparin Sodium (Porcine) (Heparin 5000 units/ml) 5,000 units EVERY 12 HOURS SUBQ 10/20/17 21:00 11/19/17 20:59 10/20/17 21:04 Lorazepam (Ativan 2mg/ml 1ml) 2 mg Q2H PRN IV For Anxiety 10/20/17 18:45 10/27/17 18:44 Morphine Sulfate (Morphine Sulfate) 4 mg Q4H PRN IVP Severe Pain (Pain Scale 7-10) 10/20/17 18:45 10/27/17 18:44 10/20/17 22:51 Ondansetron HCl (Zofran) 4 mg Q6H PRN IVP Nausea & Vomiting 10/20/17 18:45 11/19/17 18:44 Polyethylene Glycol (Miralax) 17 gm DAILYPRN PRN ORAL Constipation 10/20/17 18:45 11/19/17 18:44 Vancomycin HCl (Vanco rx to dose) 1 ea DAILY PRN MISC PRN RX TO DOSE PROTOCOL 10/20/17 19:30 11/19/17 19:29 Vancomycin/Sodium Chloride 250 ml @ 166.667 mls/hr Q24H IVPB 10/20/17 21:00 10/25/17 20:59 10/20/17 21:48 Assessment/Plan Assessment/Plan Abx: -IV Vancomycin 10/20- Cefepime 10/20- IV Zosyn x1 10/20 Assessment: PNA with Left loculated pleural effusion- r/o empyema vs complicated parapneumonic process- ?aspiration given recent EGD -s/p thoracentesis 10/21- removal of 160cc fluid -CXR: Large left pleural effusion -CTA chest: No evidence of central or large segmental pulmonary embolus. Patient motion and pleural/parenchymal disease on the left makes the examination nondiagnostic for smaller subsegmental pulmonary emboli. No evidence of thoracic aortic aneurysm or dissection. Large loculated left pleural effusion with near complete compressive atelectasis of the left lower lobe. There is some shift of the mediastinal structures to the right. Some rounded low attenuation areas in the left lung may be related to focal loculations of pleural fluid however mass is not entirely excluded. Short-term followup exam after thoracentesis recommended for better evaluation. Heterogeneous multinodular left thyroid lobe/goiter with calcified and noncalcified nodules. Leukocytosis, improving- 2ry to above -afebrile -u/a neg SOLITARIO, improving HTN Plan: -Continue IV Vancomycin and Cefepime #2 and add flagyl for anaerobic coverage -will deescalate pending cultures -f/u cx and pleural fluid analysis and cultures -CT surgery evaluation - may need CT vs VATS -f/u CXR post-thoracentesis -Monitor CBC/BMP, temperatures -awaiting transfer to [facility] Thank you for this consultation. Will continue to follow along with you. Discussed with Raysa Segovia M.D. Oct 21, 2017 12:58
--- NOTE | 2017-10-21 13:41 | Pre-Procedure Note/Attestation ---
Pre-Procedure Note/Attestation Complete Prior to Procedure Planned Procedure: left Procedure Narrative: US guided thoracentesis Indications for Procedure Pre-Operative Diagnosis: pleural effusion Attestation I attest that I discussed the nature of the procedure; its benefits; risks and complications; and alternatives (and the risks and benefits of such alternatives ), prior to the procedure, with the patient (or the patient's legal food service representative). I attest that, if there was a reasonable possibility of needing a blood transfusion, the patient (or the patient's legal food service representative) was given the [facility] standardized written summary, pursuant to the Pierre Yonas Blood Safety Act ([place] Health and Safety Code # 1645, as amended). I attest that I re-evaluated the patient just prior to the surgery and that there has been no change in the patient's H&P, except as documented below: Gato Berg M.D. Oct 21, 2017 13:41
--- NOTE | 2017-10-21 13:57 | Operative Note - PDOC ---
Operative Note Operative Note Date of Operation/Procedure: Oct 21, 2017 Pre-op Diagnosis: pleural effusion Procedure: US guided left thoracentesis Post-op Diagnosis: same Post-op Diagnosis: same as pre-op Operative Findings: consistent w/pre-op dx studies Surgeon: Gato Berg Anesthesia: local Specimen: yes Complications: none Condition: stable Fluids: 0 Estimated Blood Loss: none Drains: none Implant(s) used?: No Indications for Procedure symptomatic left pleural effusion Description of Procedure US guided left thoracentesis done. US revealed complicated left pleural effusion, with multiple loculations. Thoracentesis yeilded 160 cc of thin plueral fluid. Fluid will be sent for requested diganostic studies. Post ptocedure chest xray to be obtained. Patient tolerated procedure well Gato Berg M.D. Oct 21, 2017 13:57
--- NOTE | 2017-10-21 14:37 | Diagnostic Imaging Report ---
Indications: Pleural effusion Technique: Ultrasound used to localize optimal puncture site. Sterile prepping and draping left chest. Local anesthesia with 1% lidocaine. Under real-time ultrasound guidance, puncture pleural space using thoracentesis needle. Stylet removed. Catheter placed to vacuum bottle suction. Total 160 milliliters of fluid aspirated. Patient tolerated procedure well, without immediate complication. Findings: Pulmonary ultrasound demonstrated a moderate to large sized loculated left pleural effusion. Needle noted within this effusion on ultrasound. Impression: Multiloculated left pleural effusion. Successful diagnostic and therapeutic ultrasound-guided thoracentesis, yielding 160 milliliters of fluid.
[2017-10-21] MEDS: metroNIDAZOLE 500mg tab ORAL SCH ×2 (15:42→23:02)
[2017-10-21 16:00] VITALS: BP 118/71
[2017-10-21 17:52] LABS: APPEARANCE, BODY FLUID CLOUDY; BD FL SOURCE THORACENTESIS; BD FL VOLUME 24 mL; BODY FLUID NUCLEATED CELLS 3060 /CUMM; BODY FLUID RBC 540 /CUMM; MONONUCLEAR WBC 4 %; POLYMORPHONUCLEAR WBC 96 %
--- NOTE | 2017-10-21 19:02 | Diagnostic Imaging Report ---
Indication: Status post thoracentesis. Technique: XRAY CHEST 1 V Comparison: 10/20/17 Findings: Heart size and mediastinal contours are stable. Right lung is essentially clear. There is persistent opacification of left hemithorax likely related to known large loculated left pleural effusion. There is no pneumothorax status post thoracentesis. No acute abnormality identified. Impression: No pneumothorax status post thoracentesis.
[2017-10-21 20:00] VITALS: BP 122/70
[2017-10-21] MEDS ORDERED: Cefepime 1gm in D5W 55ml IVPB SCH (20:30)
--- NOTE | 2017-10-21 20:30 | History and Physical Report ---
DATE OF ADMISSION: 10/20/2017 CHIEF COMPLAINT: Shortness breath and cough. HISTORY OF PRESENT ILLNESS: This is a 72-year-old female with past medical history significant for hypertension and dyslipidemia, who had a recent colonoscopy about [id number] weeks ago by Dr. John Sánchez at [facility]. Due to the chronic cough, she subsequently was treated for that and she has been having left-sided chest wall pain and flank pain over past several days, got progressively worsening. She lost appetite over the past five days and associated with shortness of breath and productive cough and shortly after initial evaluation in the emergency room the patient was noted to have left-sided infiltrate versus effusion on chest x-ray and subsequently the patient was admitted to the hospital with left-sided pneumonia and possible pleural effusion versus empyema. PAST MEDICAL HISTORY AND PAST SURGICAL HISTORY: As above. History of hypertension, dyslipidemia, history of laminectomy at L4 and L5 about more than 15 years ago, , GERD, and insomnia. ALLERGIES: No known drug allergies. MEDICATIONS: Medications at home significant for Ambien, Dexilant, ranitidine, atenolol, and Lipitor. SOCIAL HISTORY: The patient denies any smoking. 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 She denied any substance abuse. Socially drinks. Lives with her , very supportive at bedside. FAMILY HISTORY: Heart disease runs in the father's side. REVIEW OF SYSTEMS: Mostly as above complained about of productive cough. Denies any hemoptysis or hematochezia. Denies any bright red blood per rectum. Denies any loss of consciousness. Denies any suicidal or homicidal ideation. Complained about flank pain and chest wall pain. Denies any bright red blood per rectum. PHYSICAL EXAMINATION: VITAL SIGNS: On admission, temperature 98.4, pulse of 80, respiratory rate 20, and blood pressure 122/70. GENERAL: The patient is awake and responsive, in no acute distress. HEAD AND NECK: Pupils are reactive to light. Extraocular movements are intact. NECK: Supple. No JVD. LUNGS: Good air entry. No wheezing or rales. Decreased air in the left side. HEART: S1 and S2. Regular rhythm. No murmur or gallop. ABDOMEN: Soft, nontender, and nondistended. Positive bowel sounds. EXTREMITIES: No cyanosis, clubbing, or edema. NEUROLOGIC: Cranial nerves II through XII are grossly intact. Motor is 5/5 in all extremities. LABORATORY DATA: On admission significant for WBC of 32, hemoglobin 13, hematocrit 40, and platelet 456. Sodium 132, potassium 3.4, chloride 91, bicarbonate 30, BUN 30, and creatinine 1.4. GFR is 37.2. Glucose is 103. Uric acid is 6.6. Calcium is 8.9. First troponin is 0.00. ProBNP of 253. Albumin is 2.8. The patient's PT of 12, INR 1.1, and PTT of 38. Urinalysis +2 protein, ketone +1, urine occult blood +5, and leukocytes negative. ABG; pH of 7.48, pCO2 33, pO2 99, saturating at 97.4. Chest x-ray noted that the patient has a large left pleural effusion. CT of the chest and thorax was done and noted that there is no evidence of central or large segment of pulmonary embolism, the patient's motion and parenchymal disease on the left makes the examination nondiagnostic for the small subsegmental pulmonary embolism. No evidence of the thoracic, aortic aneurysm, or dissection, large loculated left pleural effusion with a near complete compressive atelectasis of the left lower lobe, there is some shift of the mediastinum structure to the right, some level attenuation around the left lung may be related to the focal like loculated pleural effusion. However, the mass is not entirely excluded. Heterogeneous multinodular left thyroid lobe with goiter with calcification and noncalcified nodule. ASSESSMENT: 1. Leukocytosis with the large loculated left pleural effusion, possible pneumonia, underlying empyema. 2. Hypertension. 3. Dyslipidemia. 4. Dehydration. 5. Prerenal azotemia. 6. Acute kidney injury most likely secondary to dehydration with acute tubular necrosis. 7. Hyponatremia. 8. Hypokalemia. PLAN: Admit the patient to [facility]. We will follow up with Dr. Patton [facility]. Broad-spectrum antibiotics with cefepime, vancomycin, and continue broad-spectrum antibiotics, and monitor cultures and laboratory. DVT prophylaxis. Heparin subcutaneous. Discussed with extensively as well as the patient at bedside, they would like to be transferred to [facility]. We will discuss with transfer center once the bed is available. We will consider thoracocentesis for further evaluation of pleural effusion. Code status is Full Code. Jesse Mckeon M.D. DR: SHARON JOB#: [id number] CC:
[2017-10-21] MEDS: Vancomycin 750mg/NS 250ml IVPB SCH (21:00)
[2017-10-22] VITALS: BP 119/67
[2017-10-22] MEDS: Albuterol/Ipratropium 3ml neb HHN PRN ×2 (03:51→07:53)
[2017-10-22 04:00] VITALS: BP 128/74
[2017-10-22] MEDS: metroNIDAZOLE 500mg tab ORAL SCH ×2 (05:42→13:09)
[2017-10-22 05:59] LABS: MEAN CORPUSCULAR HEMOGLOBIN 28.7 PG (27.0-31.0); MEAN CORPUSCULAR HGB CONC 32.9 G/DL (32.0-36.0); MEAN CORPUSCULAR VOLUME 87 FL (80-99); MEAN PLATELET VOLUME 7.7 FL (6.5-10.1); PLATELET COUNT 427 K/UL (150-450); RED BLOOD COUNT 4.03 M/UL (4.20-5.40); RED CELL DISTRIBUTION WIDTH 12.6 % (11.6-14.8); WHITE BLOOD COUNT 18.9 K/UL (4.8-10.8)
[2017-10-22 06:34] LABS: ALANINE AMINOTRANSFERASE 12 U/L (12-78); ALBUMIN/GLOBULIN RATIO 0.5 (1.0-2.7); ANION GAP 10 mmol/L (5-15); ASPARTATE AMINO TRANSFERASE 14 U/L (15-37); CALCIUM 8.6 MG/DL (8.5-10.1); CARBON DIOXIDE 26 MMOL/L (21-32); CHLORIDE 102 MMOL/L (98-107); CREATININE 0.7 MG/DL (0.55-1.30); GLOMERULAR FILTRATION RATE > 60 mL/min (>60); MAGNESIUM 2.3 MG/DL (1.8-2.4); PHOSPHORUS 1.8 MG/DL (2.5-4.9); POTASSIUM 3.5 MMOL/L (3.5-5.1); SODIUM 138 MMOL/L (136-145); TOTAL PROTEIN 6.8 G/DL (6.4-8.2)
[2017-10-22 08:00] VITALS: BP 128/74
--- NOTE | 2017-10-22 09:08 | Infectious Diseases Prog Note ---
Assessment/Plan Assessment/Plan Abx: -IV Vancomycin 10/20- Cefepime 10/20-] Flagyl 10/21- IV Zosyn x1 10/20 Assessment: PNA with Left loculated pleural effusion- r/o empyema vs complicated parapneumonic process- ?aspiration given recent EGD -s/p thoracentesis 10/21- removal of 160cc fluid -WBC 3060 (N 96%), pH 7.5; LDH, protein p ; Cx NTD -sp cx NTD -CXR 10/21 (post- thora)- There is persistent opacification of left hemithorax likely related to known large loculated left pleural effusion. There is no pneumothorax status post thoracentesis. -CXR: Large left pleural effusion -CTA chest: No evidence of central or large segmental pulmonary embolus. Patient motion and pleural/parenchymal disease on the left makes the examination nondiagnostic for smaller subsegmental pulmonary emboli. No evidence of thoracic aortic aneurysm or dissection. Large loculated left pleural effusion with near complete compressive atelectasis of the left lower lobe. There is some shift of the mediastinal structures to the right. Some rounded low attenuation areas in the left lung may be related to focal loculations of pleural fluid however mass is not entirely excluded. Short-term followup exam after thoracentesis recommended for better evaluation. Heterogeneous multinodular left thyroid lobe/goiter with calcified and noncalcified nodules. Leukocytosis, improving- 2ry to above -afebrile -u/a neg -BCx NTD SOLITARIO, improving HTN Plan: -Continue IV Vancomycin and Cefepime #3 and flagyl #2 pending cultures -will deescalate pending cultures -f/u cx and pleural fluid analysis and cultures -CT surgery evaluation - may need CT vs VATS given loculated effusion, persistent effusion and only 160mL removed with thoracentesis -Monitor CBC/BMP, temperatures -awaiting transfer to [facility] Thank you for this consultation. Will continue to follow along with you. Discussed with RN. Subjective Allergies: Coded Allergies: No Known Allergies (Unverified , 10/20/17) Subjective afebrile leukocytosis trending down cx NTD awaiting transfer to [facility] Objective Vital Signs Last 24 Hour Vital Signs Date Time Temp Pulse Resp B/P (MAP) Pulse Ox O2 Delivery O2 Flow Rate FiO2 10/22/17 08:04 99 20 98 Nasal Cannula 3.0 32 10/22/17 07:51 100 20 96 Nasal Cannula 3.0 32 10/22/17 06:42 99 18 Nasal Cannula 3.0 32 10/22/17 06:42 93 Nasal Cannula 3.0 32 10/22/17 06:42 Nasal Cannula 3.0 32 10/22/17 04:01 102 20 99 Nasal Cannula 3.0 32 10/22/17 04:00 98.6 94 20 128/74 94 Nasal Cannula 3.0 10/22/17 03:51 101 20 97 Nasal Cannula 3.0 32 10/22/17 03:43 99 10/22/17 00:00 98.9 93 24 119/67 96 Nasal Cannula 3.0 10/21/17 23:37 93 10/21/17 20:18 101 10/21/17 20:00 98.8 98 18 122/70 96 Nasal Cannula 3.0 10/21/17 19:57 Nasal Cannula 3.0 32 10/21/17 19:57 98 20 Nasal Cannula 3.0 32 10/21/17 19:57 94 Nasal Cannula 3.0 32 10/21/17 16:00 93 10/21/17 16:00 98.5 93 23 118/71 99 Nasal Cannula 3.0 10/21/17 12:00 97 10/21/17 12:00 98.4 97 21 121/72 98 Nasal Cannula 3.0 Height (Feet): 5 Height (Inches): 3.00 Weight (Pounds): 161 Objective General Appearance: WD/WN Lines, tubes and drains: peripheral HEENT: normocephalic, atraumatic Neck: non-tender, normal alignment, supple Respiratory/Chest: chest wall non-tender, decreased breath sounds L lung Cardiovascular/Chest: normal peripheral pulses, normal rate Abdomen: normal bowel sounds, non tender Genitourinary/Rectal: normal genital exam, normal rectal exam Extremities: normal range of motion, non-tender Skin Exam: normal pigmentation Microbiology Date/Time Source Procedure Growth Status 10/21/17 13:37 Ascities Fluid Gram Stain Pending Resulted 10/21/17 13:37 Ascities Fluid Body Fluid Culture - Preliminary NO GROWTH Resulted 10/20/17 21:00 Sputum Gram Stain - Final Resulted 10/20/17 21:00 Sputum Sputum Culture - Preliminary NO GROWTH AFTER 24 HOURS Resulted 10/20/17 17:15 Nasal Nares Influenza Types A,B Antigen (BRONWYN) - Final Complete Laboratory Tests Test 10/21/17 13:37 10/22/17 04:30 Body Fluid Source Thoracentesis Body Fluid Volume 24 mL Body Fluid Appearance Cloudy Body Fluid pH 7.5 Body Fluid RBC 540 /CUMM Body Fluid Total Nucleated Cells 3060 /CUMM Body Fluid Polynuclear WBCs (%) 96 % Body Fluid Mononuclear WBCs (%) 4 % Body Fluid Mesothelial Cells (%) 0 % Body Fluid Glucose Pending Body Fluid Total Protein Pending Body Fluid Albumin Pending Body Fluid Lactate Dehydrogenase Pending White Blood Count 18.9 K/UL (4.8-10.8) H Red Blood Count 4.03 M/UL (4.20-5.40) L Hemoglobin 11.6 G/DL (12.0-16.0) L Hematocrit 35.1 % (37.0-47.0) L Mean Corpuscular Volume 87 FL (80-99) Mean Corpuscular Hemoglobin 28.7 PG (27.0-31.0) Mean Corpuscular Hemoglobin Concent 32.9 G/DL (32.0-36.0) Red Cell Distribution Width 12.6 % (11.6-14.8) Platelet Count 427 K/UL (150-450) Mean Platelet Volume 7.7 FL (6.5-10.1) Neutrophils (%) (Auto) % (45.0-75.0) Lymphocytes (%) (Auto) % (20.0-45.0) Monocytes (%) (Auto) % (1.0-10.0) Eosinophils (%) (Auto) % (0.0-3.0) Basophils (%) (Auto) % (0.0-2.0) Neutrophils % (Manual) Pending Lymphocytes % (Manual) Pending Platelet Estimate Pending Platelet Morphology Pending Sodium Level 138 MMOL/L (136-145) Potassium Level 3.5 MMOL/L (3.5-5.1) Chloride Level 102 MMOL/L (98-107) Carbon Dioxide Level 26 MMOL/L (21-32) Anion Gap 10 mmol/L (5-15) Blood Urea Nitrogen 12 mg/dL (7-18) Creatinine 0.7 MG/DL (0.55-1.30) Estimat Glomerular Filtration Rate > 60 mL/min (>60) Glucose Level 146 MG/DL (74-106) H Calcium Level 8.6 MG/DL (8.5-10.1) Phosphorus Level 1.8 MG/DL (2.5-4.9) L Magnesium Level 2.3 MG/DL (1.8-2.4) Total Bilirubin 0.4 MG/DL (0.2-1.0) Aspartate Amino Transf (AST/SGOT) 14 U/L (15-37) L Alanine Aminotransferase (ALT/SGPT) 12 U/L (12-78) Alkaline Phosphatase 91 U/L (46-116) Lactate Dehydrogenase 156 U/L (81-234) Total Protein 6.8 G/DL (6.4-8.2) Albumin 2.2 G/DL (3.4-5.0) L Globulin 4.6 g/dL Albumin/Globulin Ratio 0.5 (1.0-2.7) L Current Medications Medications (Trade) Dose Ordered Sig/Valencia Route PRN Reason Start Time Stop Time Status Last Admin Dose Admin Acetaminophen (Tylenol) 650 mg Q4H PRN ORAL FEVER 10/20/17 18:45 11/19/17 18:44 Albuterol/ Ipratropium (Albuterol/ Ipratropium) 3 ml Q4H PRN HHN Shortness of Breath 10/20/17 18:45 10/25/17 18:44 10/22/17 07:53 Cefepime HCl 1 gm/ Dextrose 55 ml @ 110 mls/hr Q24H IVPB 10/21/17 20:30 10/28/17 20:29 10/21/17 20:15 Dextrose (Dextrose 50%) STAT PRN IV Hypoglycemia 10/20/17 18:45 11/19/17 18:44 Dextrose/ Electrolytes 1,000 ml @ 100 mls/hr Q10H IV 10/21/17 12:00 11/20/17 11:59 10/21/17 23:02 Guaifenesin (Mucinex ER) 600 mg TWICE A DAY ORAL 10/21/17 12:00 11/20/17 11:59 10/21/17 17:58 Heparin Sodium (Porcine) (Heparin 5000 units/ml) 5,000 units EVERY 12 HOURS SUBQ 10/20/17 21:00 11/19/17 20:59 10/21/17 20:58 Lorazepam (Ativan 2mg/ml 1ml) 2 mg Q2H PRN IV For Anxiety 10/20/17 18:45 10/27/17 18:44 Metronidazole (Flagyl) 500 mg Q8HR ORAL 10/21/17 15:33 10/28/17 15:32 10/22/17 05:42 Morphine Sulfate (Morphine Sulfate) 4 mg Q4H PRN IVP Severe Pain (Pain Scale 7-10) 10/20/17 18:45 10/27/17 18:44 10/20/17 22:51 Ondansetron HCl (Zofran) 4 mg Q6H PRN IVP Nausea & Vomiting 10/20/17 18:45 11/19/17 18:44 Polyethylene Glycol (Miralax) 17 gm DAILYPRN PRN ORAL Constipation 10/20/17 18:45 11/19/17 18:44 Vancomycin HCl (Vanco rx to dose) 1 ea DAILY PRN MISC PRN RX TO DOSE PROTOCOL 10/20/17 19:30 11/19/17 19:29 Vancomycin/Sodium Chloride 250 ml @ 166.667 mls/hr Q24H IVPB 10/20/17 21:00 10/25/17 20:59 10/21/17 21:00 Raysa Hills M.D. Oct 22, 2017 09:08
[2017-10-22 09:13] LABS: ANISOCYTOSIS 1+; BAND NEUTROPHILS % (MANUAL) 0 % (0-8); BASOPHILS % (MANUAL) 0 % (0-2); EOSINOPHILS % (MANUAL) 0 % (0-3); HYPOCHROMASIA 1+; LYMPHOCYTES % (MANUAL) 5 % (20-45); NEUTROPHILS % (MANUAL) 88 % (45-75); PLATELET ESTIMATE ADEQUATE; PLATELET MORPHOLOGY NORMAL; TOTAL CELLS COUNTED 100
[2017-10-22] MEDS: guaiFENesin ER 600mg tab ORAL SCH (10:16)
[2017-10-22] MEDS: D5NS w/KCl 40mEq 1000ml 1,000 ML IV SCH (10:17)
[2017-10-22] MEDS: Heparin 5000 units/ml inj SUBQ SCH (10:29)
--- NOTE | 2017-10-22 10:59 | Diagnostic Imaging Report ---
Indication: Abnormal renal function test Technique: Renal ultrasound Comparison: None Findings: Right kidney measures 10.6 cm. Left kidney measures 9.9 cm. There is no hydronephrosis. No sonographically evident renal calculi are seen. Visualized bladder is grossly unremarkable. Visualized IVC is unremarkable. Incidental note is made of an apparent uterine or periuterine mass measuring 5.2 cm. Impression: No hydronephrosis. Incidental note of an apparent uterine or periuterine mass possibly a fibroid incompletely evaluated on the current exam. Dedicated pelvic ultrasound recommended for further evaluation.
--- NOTE | 2017-10-22 11:50 | Pulmonology Progress Note ---
Assessment/Plan Problems: (1) Sepsis (2) Pleural effusion Assessment/Plan thoracentesis planned, continue abx check cultures Id consult reviewed. Subjective ROS Limited/Unobtainable: No Interval Events: late note for Constitutional: Reports: fatigue Respiratory: Reports: productive cough, shortness of breath Allergies: Coded Allergies: No Known Allergies (Unverified , 10/20/17) Objective Last 24 Hour Vital Signs Date Time Temp Pulse Resp B/P (MAP) Pulse Ox O2 Delivery O2 Flow Rate FiO2 10/22/17 08:04 99 20 98 Nasal Cannula 3.0 32 10/22/17 07:51 100 20 96 Nasal Cannula 3.0 32 10/22/17 06:42 99 18 Nasal Cannula 3.0 32 10/22/17 06:42 93 Nasal Cannula 3.0 32 10/22/17 06:42 Nasal Cannula 3.0 32 10/22/17 04:01 102 20 99 Nasal Cannula 3.0 32 10/22/17 04:00 98.6 94 20 128/74 94 Nasal Cannula 3.0 10/22/17 03:51 101 20 97 Nasal Cannula 3.0 32 10/22/17 03:43 99 10/22/17 00:00 98.9 93 24 119/67 96 Nasal Cannula 3.0 10/21/17 23:37 93 10/21/17 20:18 101 10/21/17 20:00 98.8 98 18 122/70 96 Nasal Cannula 3.0 10/21/17 19:57 Nasal Cannula 3.0 32 10/21/17 19:57 98 20 Nasal Cannula 3.0 32 10/21/17 19:57 94 Nasal Cannula 3.0 10/21/17 16:00 93 10/21/17 16:00 98.5 93 23 118/71 99 Nasal Cannula 3.0 10/21/17 12:00 97 10/21/17 12:00 98.4 97 21 121/72 98 Nasal Cannula 3.0 General Appearance: WD/WN HEENT: normocephalic, atraumatic Respiratory/Chest: chest wall non-tender, lungs clear Breasts: no masses Cardiovascular: normal peripheral pulses Abdomen: normal bowel sounds, soft, non tender Genitourinary: normal external genitalia Extremities: no clubbing Skin: no lesions, no ulcers Microbiology Date/Time Source Procedure Growth Status 10/21/17 13:37 Ascities Fluid Gram Stain - Final Resulted 10/21/17 13:37 Ascities Fluid Body Fluid Culture - Preliminary NO GROWTH Resulted 10/20/17 21:00 Sputum Gram Stain - Final Resulted 10/20/17 21:00 Sputum Sputum Culture - Preliminary NO GROWTH AFTER 24 HOURS Resulted 10/20/17 17:15 Nasal Nares Influenza Types A,B Antigen (BRONWYN) - Final Complete Laboratory Tests 10/21/17 13:37: Body Fluid Source Thoracentesis, Body Fluid Volume 24, Body Fluid Appearance Cloudy, Body Fluid pH 7.5, Body Fluid RBC 540, Body Fluid Total Nucleated Cells 3060, Body Fluid Polynuclear WBCs (%) 96, Body Fluid Mononuclear WBCs (%) 4, Body Fluid Mesothelial Cells (%) 0, Body Fluid Glucose [Pending], Body Fluid Total Protein [Pending], Body Fluid Albumin [Pending], Body Fluid Lactate Dehydrogenase [Pending] 10/22/17 04:30: White Blood Count 18.9H, Red Blood Count 4.03L, Hemoglobin 11.6L, Hematocrit 35.1L, Mean Corpuscular Volume 87, Mean Corpuscular Hemoglobin 28.7, Mean Corpuscular Hemoglobin Concent 32.9, Red Cell Distribution Width 12.6, Platelet Count 427, Mean Platelet Volume 7.7, Neutrophils (%) (Auto) , Lymphocytes (%) ( Auto) , Monocytes (%) (Auto) , Eosinophils (%) (Auto) , Basophils (%) (Auto) , Differential Total Cells Counted 100, Neutrophils % (Manual) 88H, Lymphocytes % (Manual) 5L, Monocytes % (Manual) 7, Eosinophils % (Manual) 0, Basophils % ( Manual) 0, Band Neutrophils 0, Platelet Estimate Adequate, Platelet Morphology Normal, Hypochromasia 1+, Anisocytosis 1+, Sodium Level 138, Potassium Level 3.5 , Chloride Level 102, Carbon Dioxide Level 26, Anion Gap 10, Blood Urea Nitrogen 12, Creatinine 0.7, Estimat Glomerular Filtration Rate > 60, Glucose Level 146H, Calcium Level 8.6, Phosphorus Level 1.8L, Magnesium Level 2.3, Total Bilirubin 0.4, Aspartate Amino Transf (AST/SGOT) 14L, Alanine Aminotransferase (ALT/SGPT) 12, Alkaline Phosphatase 91, Lactate Dehydrogenase 156, Total Protein 6.8, Albumin 2.2L, Globulin 4.6, Albumin/Globulin Ratio 0.5L Current Medications Medications (Trade) Dose Ordered Sig/Valencia Route PRN Reason Start Time Stop Time Status Last Admin Dose Admin Acetaminophen (Tylenol) 650 mg Q4H PRN ORAL FEVER 10/20/17 18:45 11/19/17 18:44 Albuterol/ Ipratropium (Albuterol/ Ipratropium) 3 ml Q4H PRN HHN Shortness of Breath 10/20/17 18:45 10/25/17 18:44 10/22/17 07:53 Cefepime HCl 1 gm/ Dextrose 55 ml @ 110 mls/hr Q24H IVPB 10/21/17 20:30 10/28/17 20:29 10/21/17 20:15 Dextrose (Dextrose 50%) STAT PRN IV Hypoglycemia 10/20/17 18:45 11/19/17 18:44 Dextrose/ Electrolytes 1,000 ml @ 100 mls/hr Q10H IV 10/21/17 12:00 11/20/17 11:59 10/22/17 10:17 Guaifenesin (Mucinex ER) 600 mg TWICE A DAY ORAL 10/21/17 12:00 11/20/17 11:59 10/22/17 10:16 Heparin Sodium (Porcine) (Heparin 5000 units/ml) 5,000 units EVERY 12 HOURS SUBQ 10/20/17 21:00 11/19/17 20:59 10/22/17 10:29 Lorazepam (Ativan 2mg/ml 1ml) 2 mg Q2H PRN IV For Anxiety 10/20/17 18:45 10/27/17 18:44 Metronidazole (Flagyl) 500 mg Q8HR ORAL 10/21/17 15:33 10/28/17 15:32 10/22/17 05:42 Morphine Sulfate (Morphine Sulfate) 4 mg Q4H PRN IVP Severe Pain (Pain Scale 7-10) 10/20/17 18:45 10/27/17 18:44 10/20/17 22:51 Ondansetron HCl (Zofran) 4 mg Q6H PRN IVP Nausea & Vomiting 10/20/17 18:45 11/19/17 18:44 Polyethylene Glycol (Miralax) 17 gm DAILYPRN PRN ORAL Constipation 10/20/17 18:45 11/19/17 18:44 Vancomycin HCl (Vanco rx to dose) 1 ea DAILY PRN MISC PRN RX TO DOSE PROTOCOL 10/20/17 19:30 11/19/17 19:29 Vancomycin/Sodium Chloride 250 ml @ 166.667 mls/hr Q24H IVPB 10/20/17 21:00 10/25/17 20:59 10/21/17 21:00 SEMAJ WILKINS Oct 22, 2017 11:50
[2017-10-22 12:00] VITALS: BP 140/86
[2017-10-22 16:00] VITALS: BP 155/76
[2017-10-22] MEDS ORDERED: 1/2 NS 1000ml IV ONE (17:13)
[2017-10-22] MEDS ORDERED: Tubing IV Secondary IV ONE (17:13)
[2017-10-22] MEDS ORDERED: NS 500ML ONE (17:13)
[2017-10-22 18:14] LABS: PROTEIN, BODY FLUID 4.9 g/dL (.)
--- NOTE | 2017-10-22 18:51 | Discharge Summary ---
Discharge Summary Hospital Course Date of Admission Oct 20, 2017 at 16:38 Date of Discharge Oct 22, 2017 at 18:17 Admitting Diagnosis PNEUMONIA HPI Meagan Miranda is a 72 year old female who was admitted on Oct 20, 2017 at 16: 38 for Pneumonia Hospital Course Discharge Discharge Disposition Patient was discharged to Discharge Diagnoses: Jesse Mckeon MD Oct 22, 2017 18:50
--- NOTE | 2017-10-23 23:01 | Discharge Summary ---
DATE OF ADMISSION: 10/20/2017 DATE OF DISCHARGE: 10/22/2017 BRIEF HISTORY: This is a 72-year-old very delightful female with past medical history significant for hypertension and dyslipidemia, who was presented to the hospital complaining about shortness of breath and cough. Shortly after initial evaluation, the patient was admitted to the hospital with leukocytosis as the loculated large left pleural effusion, possible empyema in conjunction with underlying pneumonia. The patient was noted to be in acute renal failure due to the severe dehydration and ATN. HOSPITAL COURSE: The patient was started on broad-spectrum antibiotics with cefepime and vancomycin and Dr. Patton from [facility] was consulted. The patient's status gradually improved. ID consultation with Dr. Hills as well. The patient's status improved and underwent thoracocentesis of the left side, which noted to have multiple loculated left pleural effusion, 160 mL of thin pleural fluid was removed and no complication. The patient was subsequently transferred to [facility] as per request of the primary physician as well as the patient. FINAL DIAGNOSES: 1. Sepsis secondary to pneumonia. 2. Left loculated pleural effusion, possible empyema. 3. Hypertension. 4. Dyslipidemia. 5. Acute kidney injury with acute tubular necrosis. 6. Hypokalemia. 7. Hyponatremia. MEDICATION ON DISCHARGE: Continue discharge medication list. ACTIVITY: As tolerated. DIET: Would be a cardiac diet. The patient was transferred to [facility] and I discussed with the accepting physician at [facility]. Jesse Mckeon M.D. DR: Aidee JOB#: [id number] CC:
[2017-10-24 13:55] LABS: COMMENT,BODY FLUID PATHOLOGIST COMMENT
[2017-10-25 07:07] LABS: BD FL SOURCE THORACENTESIS; BD FL VOLUME 24 mL; LDH, BODY FLUID 1400 U/L
--- NOTE | 2017-10-27 11:01 | Diagnostic Imaging Report ---
APPROVED REPORT CPT Code: 44522 Present Symptoms Shortness of breath BILATERAL LOWER EXTREMITY VENOUS DUPLEX: Imaging reveals a patent deep venous system bilaterally. There is no evidence of thrombus within the femoral, popliteal or tibial segments. The greater saphenous veins are also within normal limits. Doppler indicates normal spontaneous flow within these segments.
== END 2017-10-22 18:17 | disposition short-term general hospital (02) | DRG 871 ==
LOC: EDBD 15:18 → EMR 16:34 → 2W 16:38 → EDBEDREQ 16:51
PROC: 0W9B3ZZ Drainage of Left Pleural Cavity, Percutaneous Approach (ICD-10-PCS; principal; 2017-10-21)
DX: A41.9 Sepsis, unspecified organism (principal); J18.9 Pneumonia, unspecified organism; N17.0 Acute kidney failure with tubular necrosis; J86.9 Pyothorax without fistula; J91.8 Pleural effusion in other conditions classified elsewhere; E87.1 Hypo-osmolality and hyponatremia; E86.0 Dehydration; I10 Essential (primary) hypertension; E78.5 Hyperlipidemia, unspecified; E87.6 Hypokalemia
CPT/HCPCS: 36415; 36600; 71010; 71275; 76775; 76942; 80053; 80069; 81003; 82550; 82803; 82962; 83615; 83735; 83880; 83986; 84100; 84133; 84300; 84484; 84550; 85007; 85025; 85610; 85730; 86710; 87040; 87070; 87205; 88104; 89050; 89051; 93005; 93970; 94640; 94664; 94760; 99285; J7620; J8499